=== PATIENT | female | born 1985 | race Caucasian/White ===

== ENCOUNTER 2017-04-09 14:25 | Emergency (ER) | payer OTHER ==
[~2017-04-09] VITALS: Ht 152.4 cm; Wt 77.3 kg
[2017-04-09 14:26] VITALS: BP 125/85; RESP 16; O2SAT 100
--- NOTE | 2017-04-09 14:41 | ED.REPORT ---
HPI-Sore Throat ONLY HPI/PE done Apr 09, 2017 ED Provider: History of Present Illness: seen at on Monday for sore throat, strep negative, given antibiotics amoxicillin, hard to swallow. urinate 10 to 15 times yesterday feels feverish. no others sick. primary care is no one. taking ibuprofen 800 mg maybe slight help. is when symptoms started Nursing Notes Stated Complaint: SEVERE SORE THROAT Chief Complaint: ENT & Mouth Nursing Notes Reviewed: Yes Allergies: Coded Allergies: No Known Allergies (Unverified , 04/09/17) No Active Prescriptions or Reported Meds General Time Seen by MD: 14:34 Chief Complaint Sore throat, Pain with swallowing Hx Obtained From: Patient Symptom Duration: Since onset Past Medical History Past Medical History Denies: Asthma Past Surgical History Reports: (times 2) Smoking History Never Smoker Social History Alcohol Use: Denies alcohol use Drug Use: Denies drug use Other Social History: Occupation lives with and 2 children 04/09/2017 Ambulatory Status Independent Review of Systems Basic Review of Systems Eyes: Vision NL, No discharge Hematologic: No bleeding, No bruising Allergy / Immune: No allergy Psychiatric: Normal thought content Physical Exam Initial Vital Signs Vital Signs (First) Date Time Temp Pulse Resp B/P Pulse Ox O2 Delivery O2 Flow Rate FiO2 04/09/17 14:26 37.2 90 16 125/85 100 Room Air Initial VS: Reviewed, Vital signs normal Head / Eyes: Atraumatic, Normocephalic, PERRL Respiratory: Breath sounds normal, Clear to auscultation, No respiratory distress Cardiovascular: Regular rate & rhythm, Heart sounds normal, Intact distal pulses Abdomen / GI: Soft, Non-tender, No guarding, No rebound, No distention Back: No CVA tenderness Lymphatic: No lymphadenopathy Extremities: Vascular intact, Neuro intact, No swelling, No tenderness Skin: Warm, Dry, No cyanosis Neurologic: Alert, Oriented, Nonfocal Psychiatric: Mood/affect normal, Behavior normal, Normal thought content General/Constitutional: Awake, Alert, No acute distress, Well appearing, Well developed, Well hydrated Pharynx / Tonsils / Uvula: Positive: Tonsillar erythema L, Tonsillar erythema R , Tonsillar exudate L, Tonsillar exudate R, Tonsillar swelling L, Tonsillar swelling R altered phonation Soft Tissue Neck: Positive: Cervical adenopathy L... (Anterior), Cervical adenopathy R... (Anterior) Respiratory / Chest: Atraumatic, Breath sounds NL, Breath sounds = bilat, No respiratory distress Cardiovascular: Heart rate NL, Regular rhythm, Heart sounds NL, No gallop Interpretation & Diagnostics Interpretation & Diagnostics: ROCEDURE: CT NECK SOFT TISSUES WITH CONTRAST ([id number]) INDICATIONS: 31 year-old female with difficulty swallowing. TECHNIQUE: After the administration of intravenous contrast, 3.0 mm axial sections acquired from the sella to the aortic arch. Additional oblique axial 3.0 mm sections acquired through the pharynx. 3 mm thick coronal reformats were generated. For radiation dose reduction, the following was used: automated exposure control. COMPARISON: None. FINDINGS: Image quality: Excellent. Lymph nodes: No enlarged lymph nodes seen throughout the neck. Vessels: Visualized vasculature appears patent. Neck spaces: The oropharynx, nasopharynx, and pharynx demonstrate no mucosal lesions. There is bilateral tonsillar pillar prominence, without abscess formation. The vocal cords, false vocal cords, pyriform sinuses, epiglottis, vallecula, and tongue base all appear normal. Extramucosal spaces appear unremarkable. Glands: The parotid and submandibular glands appear normal. Thyroid gland is normal in size. Miscellaneous: Visualized brain and orbits appear normal. 2 mm anterior right upper lobe nodule is present, of doubtful clinical significance. Lung apices otherwise appear clear. Superficial soft tissues appear normal. Bones: No suspicious bony lesions. Visualized sinuses and mastoids appear unremarkable. IMPRESSION: Mild prominence of the tonsillar pillars, without abscess formation. Dictated by: Julian Khan M.D. on 04/09/2017 at 16:42 Approved by: Julian Khan M.D. on 04/09/2017 at 16:49 Lab Results Interpretation Result Diagram: 04/09/17 1458 04/09/17 1458 Test 04/09/17 13:10 04/09/17 14:58 Hold Urine Received (Received) White Blood Count 7.3th/mm3 (3.8-10.1) Red Blood Count 4.67mil/mm3 (3.90-5.20) Hemoglobin 14.3g/dL (12.0-15.6) Hematocrit 42.0% (35.0-46.0) Mean Corpuscular Volume 89.9fL (81-100) Mean Corpuscular Hemoglobin 30.6pg (27.0-35.0) Mean Corpuscular Hemoglobin Concent 34.0% (32.0-37.0) Red Cell Distribution Width 12.3% (12.3-15.4) Platelet Count 211bil/L (150-400) Neutrophils (%) (Auto) 74.4% (40-74) Lymphocytes (%) (Auto) 16.3% (14-46) Monocytes (%) (Auto) 8.4% (4-12) Eosinophils (%) (Auto) 0.4% (0-5) Basophils (%) (Auto) 0.4% (0-3) Sodium Level 136mEq/L (134-144) Potassium Level 4.1mEq/L (3.5-5.2) Chloride Level 103mEq/L (97-108) Carbon Dioxide Level 21mmol/L (18-29) Blood Urea Nitrogen 6mg/dL (6-20) Creatinine 0.60mg/dL (0.57-1.00) Estimat Glomerular Filtration Rate 165mL/min (>59) Glucose Level 108mg/dL (60-99) Lactic Acid Level 1.1mmol/L (0.4-2.0) Calcium Level 9.0mg/dL (8.5-10.1) Total Bilirubin 0.3mg/dL (0.0-1.2) Aspartate Amino Transf (AST/SGOT) 22U/L (0-50) Alanine Aminotransferase (ALT/SGPT) 21U/L (0-32) Alkaline Phosphatase 119U/L (25-150) Total Protein 7.8g/dL (6.4-8.4) Albumin 4.1g/dL (3.4-5.0) Monoscreen Negative (Negative) Re-Eval/Medical Decision Med Decision/Clinical Course 31 year old female presents to the ER for evualation of worsening sore throat. Has been on antibiotics since Monday. CT is negative for any abscess formation. [place] is negative. Patient reporting improvement after decadron. No sign or peritonsillar abscess Discharge & Departure Primary Impression: Tonsillitis Disposition: Home Patient Instructions: Tonsillitis (ED) Additional Instructions: Your labs are looking good. The mono test is negative. The CT of the neck does not show any abscess. You have had a good response to the decadron. Stop the amoxicillin, Continue with clindamycin. Repeat the dose of decadron tomorrow and Monday. Please call Dr. Jimenez for follow up this week. REturn with any concerning changes. Referrals: Clarke Jimenez MD EDSupervising Provider for APC: Per Bonds MD copies to: Clarke Jimenez MD, Sue ARNP Apr 09, 2017 14:41
[2017-04-09] MEDS ORDERED: Ondansetron 2 mg/mL 2 mL Inj IVPUSH ONE (14:45)
[2017-04-09] MEDS ORDERED: HYDROmorphone 0.5 mg/0.5 mL iSecure Syringe IVPUSH ONE (14:45)
[2017-04-09] MEDS ORDERED: Clindamycin Inj 900 MG in IV Premix 1 EACH IV ONE (14:45)
[2017-04-09] MEDS ORDERED: Dexamethasone Inj 20 MG in 0.9% Sodium Chloride-Pha MIX 50 ML IV ONE (14:45)
[2017-04-09 15:13] LABS: BASOPHILS % (AUTO) 0.4 % (0-3); EOSINOPHILS % (AUTO) 0.4 % (0-5); MONOCYTES % (AUTO) 8.4 % (4-12); Mean Corpuscular Hemoglobin 30.6 pg (27.0-35.0); Mean Corpuscular Volume 89.9 fL (81-100); NEUTROPHILS % (AUTO) 74.4 % (40-74); Platelet Count 211 bil/L (150-400)
[2017-04-09 16:13] VITALS: BP 123/70; PULSE 86; RESP 16; O2SAT 97
--- NOTE | 2017-04-09 16:51 | DRSVH ---
PROCEDURE: CT NECK SOFT TISSUES WITH CONTRAST ([id number]) INDICATIONS: 31 year-old female with difficulty swallowing. TECHNIQUE: After the administration of intravenous contrast, 3.0 mm axial sections acquired from the sella to th e aortic arch. Additional oblique axial 3.0 mm sections acquired through the pharynx. 3 mm thick co gregorio reformats were generated. For radiation dose reduction, the following was used: automated exp osure control. COMPARISON: None. FINDINGS: Image quality: Excellent. Lymph nodes: No enlarged lymph nodes seen throughout the neck. Vessels: Visualized vasculature appears patent. Neck spaces: The oropharynx, nasopharynx, and pharynx demonstrate no mucosal lesions. There is bilat eral tonsillar pillar prominence, without abscess formation. The vocal cords, false vocal cords, pyr iform sinuses, epiglottis, vallecula, and tongue base all appear normal. Extramucosal spaces appear unremarkable. Glands: The parotid and submandibular glands appear normal. Thyroid gland is normal in size. Miscellaneous: Visualized brain and orbits appear normal. 2 mm anterior right upper lobe nodule is p resent, of doubtful clinical significance. Lung apices otherwise appear clear. Superficial soft tiss ues appear normal. Bones: No suspicious bony lesions. Visualized sinuses and mastoids appear unremarkable. IMPRESSION: Mild prominence of the tonsillar pillars, without abscess formation. Dictated by: Julian Khan M.D. on 04/09/2017 at 16:42 Approved by: Julian Khan M.D. on 04/09/2017 at 16:49
[2017-04-09 17:48] VITALS: BP 117/74; PULSE 88; RESP 18; O2SAT 97
== END 2017-04-09 17:49 | disposition home or self-care (01) ==
LOC: SED 14:25
DX: J03.90 Acute tonsillitis, unspecified (principal)
CPT/HCPCS: 36415; 70491; 80053; 81025; 83605; 85025; 86308; 96365; 96368; 96375; 99285; J1100; J1170; J2405; J3490; Q9967